=== PATIENT | male | born 1945 | race African-American/Black ===

== ENCOUNTER → 2018-01-04 | Outpatient (CLI) | payer OTHER | END | disposition home or self-care (01) | LOC: PCVCIMAG 14:55 | DX: I08.8 Other rheumatic multiple valve diseases (principal); J44.9 Chronic obstructive pulmonary disease, unspecified; I10 Essential (primary) hypertension | CPT/HCPCS: 93306 ==

== ENCOUNTER → 2018-02-09 | Outpatient (CLI) | payer OTHER ==
[~2018-02-09] MED LIST: BENZOCAINE ONE 20% MUCOSAL SPRAY.; IV NORMAL SALINE 500ML BAG 500 ML; MIDAZOLAM HCL/PF 2 MG/2 ML VIAL.; fentaNYL PF VIAL 100 MCG/2 ML VIAL
== END ==
LOC: PCVCINTER 09:04
DX: I08.0 Rheumatic disorders of both mitral and aortic valves (principal)
CPT/HCPCS: 93312; 93325; J2250; J3010; J7040

== ENCOUNTER → 2019-02-22 | Outpatient (CLI) | payer OTHER ==
--- NOTE | 2019-02-22 12:24 | PCVCIMAG ---
APPROVED REPORT Study performed: 02/22/2019 11:13:01 EXAM: Comprehensive 2D, Doppler, and color-flow Echocardiogram Patient Location: Echo lab Room #: 2Status: routine BSA: 2.20 HR: 66 bpmBP: 148/80 mmHg Rhythm: NSR Other Information Study Quality: Good Risk Factors: Cardiac Risk Factors: HTN, Hyperlipidemia Indications COPD Mitral Valve Disease Hx MV repair 2D Dimensions IVSd: 10.38 (7-11mm)LVOT Diam: 22.36 (18-24mm) LVDd: 55.67 mm PWd: 10.28 (7-11mm)Ascending Ao: 30.11 (22-36mm) LVDs: 41.81 (25-40mm) Left Atrium: 41.41 (27-40mm) Aortic Root: 24.22 mm LV Single Plane 4CH: 50.17 % LV Single Plane 2CH: 43.12 % Biplane EF: 47.5 % Volumes Left Atrial Volume (Systole) Single Plane 4CH: 106.44 mLSingle Plane 2CH: 95.80 mL Biplane LA Volume: 105.00 mLLA ESV Index: 48.00 mL/m2 Aortic Valve AoV Peak Norris.: 1.22 m/s AO Peak Gr.: 5.99 mmHgLVOT Max P.22 mmHg LVOT Max V: 0.90 m/s CINDY Vmax: 2.88 cm2 Mitral Valve MV Peak Gr.: 16.47 mmHg MV Mean Gr.: 6.61 mmHgE/A Ratio: 1.7 MV Decel. Time: 265.18 ms MV E Max Norris.: 2.28 m/s MV A Norris.: 1.33 m/s MV Max Norris.: 5.84 m/s MV Mean Norris.: 4.67 m/s MV VTI: 542.26 mm MV PHT: 87.72 ms MVA (PHT): 2.32 cm2 TDI E/Lateral E': 38.00E/Medial E': 28.50 Medial E' Norris.: 0.08 m/s Lateral E' Norris.: 0.06 m/s Pulmonary Valve PV Peak Norris.: 0.92 m/sPV Peak Gr.: 3.39 mmHg Tricuspid Valve TR Peak Norris.: 2.58 m/s TR Peak Gr.: 28.98 mmHg TV Vmax: 1.35 m/sPA Pressure: 36.00 mmHg Left Ventricle The left ventricle is normal size. There is normal LV segmental wall motion. There is normal left ventricular wall thickness. Left ventricular systolic function is borderline. LVEF is 45-50%. Grade II - pseudonormal filling dynamics. Right Ventricle The right ventricle is normal size. The right ventricular systolic function is normal. Atria Left atrium is moderately dilated. The interatrial septum is intact with no evidence for an atrial septal defect. The right atrium size is normal. Aortic Valve Aortic valve is trileaflet. The aortic valve is normal in structure and function. No aortic regurgitation is present. There is no aortic valvular stenosis. Mitral Valve Posterior mitral valve leaflet is thickened and fixed consistent with prior mitral valve repair surgery. Moderate mitral regurgitation with an eccentric jet. Mild gradient across the valve consistent with the known repair. Tricuspid Valve The tricuspid valve is normal in structure. Mild tricuspid regurgitation with a PA pressure of 36 mmHg. Pulmonic Valve The pulmonary valve is normal in structure. Trace to mild pulmonic regurgitation. Great Vessels The aortic root is normal in size. Aortic arch is not well visualized. The ascending aorta is normal in size. IVC is normal in size and collapses >50% with inspiration. Pericardium There is no pericardial effusion. There is no pleural effusion. <Conclusion> The left ventricle is normal size. There is normal left ventricular wall thickness. Left ventricular systolic function is borderline. LVEF is 45-50%. Grade II - pseudonormal filling dynamics. The right ventricle is normal size. Left atrium is moderately dilated. The aortic valve is normal in structure and function. Moderate mitral regurgitation with an eccentric jet. Mild tricuspid regurgitation with a PA pressure of 36 mmHg.
== END | disposition home or self-care (01) ==
LOC: PCVCIMAG 10:56
PROVIDERS: ATTEND Internal Medicine Cardiovascular Disease
DX: I08.8 Other rheumatic multiple valve diseases (principal); E78.5 Hyperlipidemia, unspecified; J44.9 Chronic obstructive pulmonary disease, unspecified; I10 Essential (primary) hypertension; E78.00 Pure hypercholesterolemia, unspecified; R60.9 Edema, unspecified
CPT/HCPCS: 93306

== ENCOUNTER → 2019-09-27 | Outpatient (CLI) | payer OTHER | END | disposition home or self-care (01) | LOC: PCVCCLINIC 13:00 | PROVIDERS: ATTEND Internal Medicine Cardiovascular Disease | DX: I13.0 Hypertensive heart and chronic kidney disease with heart failure and stage 1 through stage 4 chronic kidney disease, or unspecified chronic kidney disease (principal); I50.9 Heart failure, unspecified; N18.9 Chronic kidney disease, unspecified; E78.00 Pure hypercholesterolemia, unspecified; I34.0 Nonrheumatic mitral (valve) insufficiency; E78.5 Hyperlipidemia, unspecified; J44.9 Chronic obstructive pulmonary disease, unspecified; Z79.82 Long term (current) use of aspirin; Z79.899 Other long term (current) drug therapy; Z87.891 Personal history of nicotine dependence | CPT/HCPCS: 93005; G0463 ==